=== PATIENT | male | born 1945 | race Caucasian/White ===

== ENCOUNTER 2017-06-12 12:59 | Emergency (ER) | payer MEDICARE, MEDICAID ==
[~2017-06-12] VITALS: Ht 175.3 cm; Wt 114.3 kg
[~2017-06-12 12:59] MED LIST: BRILINTA90 M1 PO; DICLOFENAC 50MG50 MG PO; GABAPENTIN100 M1 PO; LIPITOR80 MG PO; LISINOPRIL2.5 M1 PO; PAXIL10 MG PO; PAXIL20 M1 PO; PERCOCET1 TA1 PO; ROBAXIN500 M1 PO; [UNRECOGNIZED DRUG - OTHER] TP
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
[2017-06-12 14:44] LABS: HEMOGLOBIN 13.8 g/dL (14.1-18.0); LYMPH # 2.2 K/mm3 (0.7-4.5); LYMPH % 36.5 % (10-50)
--- NOTE | 2017-06-12 15:07 | CARDIOVASCULAR REPORT ---
"Venous Exam Indications: 782.3 Edema. IMPRESSIONS 1. There is no evidence of significant Reflux. 2. No evidence of deep or superficial vein thrombosis involving the left lower extremity History: Risk factors: Current tobacco use. Hypertension. Left lower extremity venous duplex evaluation. Doppler flow study including spectral analysis, color and gage scale imaging. Location: Vascular laboratory. Patient status: Emergency department. Tables: Venous flow and imaging: + +-------+ + |Location |Overall|Flow properties | + +-------+ + |Left common femoral |Patent |Normal phasicity; spontaneous; | | | |normal augmentation; compressible | + +-------+ + |Left saphenofemoral junction|Patent |Compressible | + +-------+ + |Left profunda femoral |Patent |Compressible | + +-------+ + |Left femoral |Patent |Normal phasicity; spontaneous; | | | |normal augmentation; compressible | + +-------+ + |Left greater saphenous |Patent |Normal phasicity; spontaneous; | | | |normal augmentation; compressible | + +-------+ + |Left popliteal |Patent |Normal phasicity; spontaneous; | | | |normal augmentation; compressible | + +-------+ + |Left posterior tibial |Patent |Compressible | + +-------+ + |Left peroneal |Patent |Compressible | + +-------+ + |Left gastrocnemius |Patent |Compressible | + +-------+ + |Left soleal |Patent |Compressible | + +-------+ + (Report amended ) Electronically signed by: Igor Talley [id number]"
[2017-06-12 15:27] LABS: URINE BILIRUBIN - DIPSTICK NEGATIVE (NEG); URINE BLOOD NEGATIVE (NEG)
--- NOTE | 2017-06-12 15:34 | RADIOLOGY REPORT PS360 ---
CT THORACIC SPINE W/O CONTRAST INDICATION: LOWER THORACIC BACK PAIN ORDERING PHYSICIAN: Manuel Yañez MD PATIENT AGE: 71 years COMPARISON: Older lateral chest radiograph of 09/06/2016 TECHNIQUE: Axial images are obtained without contrast. Sagittal and coronal reformatted images are reviewed as well. FINDINGS: There is thoracic dextroscoliosis of 14 degrees with kyphosis. Kyphosis is present of the thoracic spine with multiple mild wedge changes involving T6, T7, T8, T9, T10, and T11. Endplate osteophytes are present at these levels. No obvious acute fracture or dislocation. There is some irregularity of the endplates from T6 to L1. There is also mild wedging of L1 which appears old. IMPRESSION: 1. Multilevel thoracic spondylosis with kyphoscoliosis and multiple wedge compression changes which appear chronic with degenerative disc disease and endplate changes. 2. No definite acute fracture
[2017-06-12 15:37] LABS: URINE SQUAMOUS CELLS OCC #/hpf (OCC)
--- NOTE | 2017-06-12 15:56 | RADIOLOGY REPORT PS360 ---
CT ABD PELVIS W/O CONTRAST CLINICAL INDICATION: Upper abdominal pain LOWER THORACIC BACK PAIN, UPPER ABD PAIN ORDERING PHYSICIAN: Manuel Yañez MD PATIENT AGE: 71 years COMPARISON: None TECHNIQUE: Axial images obtained with sagittal and coronal reformats. PROCEDURE: Oral Contrast: None IV Contrast: None . FINDINGS: No acute finding in the lung bases. There is an 8 mm nodule in left lower lobe medially and may contain a liss of calcium. A calcified granuloma is present in the left lung base posteriorly. The liver has an unremarkable appearance. The gallbladder is abnormal. There is a 10 mm density along the posterior wall the gallbladder and could represent a stone, polyp, or mass. Small gas densities present in the gallbladder consistent with a gas containing stone. Additional small stones are suspected toward the upper aspect of the gallbladder. Spleen is unremarkable as is the pancreas and adrenal glands. There are nonobstructing bilateral renal calculi measuring up to 4 mm bilaterally. No hydronephrosis or ureteral calculi. There is an umbilical hernia containing fat. Unremarkable appendix. No intestinal obstruction or free air. Diverticulosis is noted of the descending and sigmoid colon. No evidence of diverticulitis. There are degenerative changes in the lumbar spine. There is mild wedging of L1 which was present on previous lateral radiograph of 06/02/2016. IMPRESSION: 1. Abnormal appearing gallbladder nodular density measuring 10 mm posteriorly within the gallbladder which could be due to stone or a nodule. Other stones are present. Suggest gallbladder ultrasound for further evaluation. 2. Bilateral nephrolithiasis 3. Umbilical hernia
--- NOTE | 2017-06-12 16:53 | RADIOLOGY REPORT PS360 ---
CHEST(2 VIEWS-NOT PORTABLE) HISTORY: L posterior chest pain ORDERING PHYSICIAN: Manuel Yañez MD PATIENT AGE: 71 years COMPARISON: 08/06/2016 FINDINGS: Borderline cardiomegaly without failure. Minimal atelectatic changes are present in the left lung base. Lungs are otherwise clear. Status post right shoulder replacement. Chronic changes in the thoracic spine with multiple wedging and kyphosis unchanged. IMPRESSION: Cardiomegaly, no change with no acute finding
--- NOTE | 2017-06-12 16:54 | RADIOLOGY REPORT PS360 ---
CTA-CHEST HISTORY: Left posterior chest pain, elevated d-dimer LT POSTERIOR CHEST PAIN, ELEVATED D-DIMER ORDERING PHYSICIAN: Manuel Yañez MD PATIENT AGE: 71 years TECHNIQUE: Helical acquisition obtained following the bolus administration of 60 mL of Isovue 370 followed by a saline bolus. Axial, sagittal, and coronal reformatted images are generated and reviewed. COMPARISON: None FINDINGS: Peripheral pulmonary artery opacification is somewhat limited. There is no evidence of central pulmonary embolus. No evidence of aortic aneurysm or dissection. No mediastinal or hilar mass. Normal heart size. There are coronary artery calcifications consistent with coronary artery disease. No lobar consolidation or collapse is evident. There are mild atelectatic changes in the lower lobes. There is evidence of old granulomatous disease. No pleural effusion. Upper abdominal images show nodular densities lung posterior aspect of the gallbladder as previously described consistent with cholelithiasis. Suggest ultrasound for confirmation. Bilateral nonobstructing nephrolithiasis is present. Para multilevel degenerative disc disease with brachial kyphoscoliosis and mild wedging of several dorsal vertebral bodies once again noted. Both. An old fracture of the sternum involving the superior aspect of the body of the sternum. These correlate clinically. Previous radiograph of 07/21/2016 suggest a sternal fracture IMPRESSION: 1. No acute finding. No evidence of pulmonary embolus or aortic aneurysm. 2. Old compression changes of the thoracic spine and old fracture of the sternum. 3. Cholelithiasis 4. Coronary artery disease
[2017-06-12] MEDS ORDERED: NORCO 325 MG-51 TAB PO (17:15)
[2017-06-12 17:52] VITALS: BP 155/74
== END 2017-06-12 17:52 | disposition home or self-care (01) ==
LOC: ER 12:59
PROVIDERS: Emergency Medicine
DX: M54.6 Pain in thoracic spine (principal); R10.10 Upper abdominal pain, unspecified; I10 Essential (primary) hypertension; F41.9 Anxiety disorder, unspecified; Z72.0 Tobacco use; M79.662 Pain in left lower leg
CPT/HCPCS: Q9967